=== PATIENT | male | born 1990 | race Two or more races ===

== ENCOUNTER 2018-11-29 17:24 | Emergency (ER) | payer SELFPAY ==
[~2018-11-29] VITALS: Ht 177.8 cm; Wt 70.3 kg
[2018-11-29 19:10] VITALS: BP 133/69
[2018-11-29] MEDS ORDERED: ONDANSETRON PF 4 MG/2 ML VIAL. IV ONE (19:15)
[2018-11-29] MEDS ORDERED: LIDO:MAALOX 1:1 20 ML SINGLE DOSE. PO ONE (19:15)
[2018-11-29] MEDS ORDERED: IV NORMAL SALINE 1000ML BAG 1,000 ML IV ONE (19:15)
[2018-11-29] MEDS ORDERED: FAMOTIDINE 20 MG/2 ML VIAL IVP ONE (19:15)
[2018-11-29 19:35] LABS: BASO % 1 % (0-3); EOS # 1.4 x10^3/uL (0.0-0.7); EOS % 17 % (0-3); HEMATOCRIT 46.3 % (39.0-53.0); HEMOGLOBIN 15.4 g/dL (13.0-17.5); LYMPH % 35 % (24-48); MEAN CORPUSCULAR HEMOGLOBIN 30 pg (25-35); MEAN CORPUSCULAR HGB CONC 33 g/dL (31-37); MEAN CORPUSCULAR VOLUME 91 fL (79-100); MONO # 0.4 x10^3/uL (0.0-1.1); MONO % 5 % (0-9); NEUT # 3.7 x10^3uL (1.8-7.7); NEUT % 43 % (31-73); PLATELET COUNT 203 x10^3/uL (140-400); RED BLOOD COUNT 5.09 x10^6/uL (4.30-5.70); RED CELL DISTRIBUTION WIDTH 12.7 % (11.5-14.5); WHITE BLOOD COUNT 8.6 x10^3/uL (4.0-11.0)
[2018-11-29 19:46] LABS: CREATININE 0.8 mg/dL (0.7-1.3); POTASSIUM 3.8 mmol/L (3.5-5.1)
--- NOTE | 2018-11-29 19:50 | RAD ---
PQRS Compliance Statement: One or more of the following individualized dose reduction techniques were utilized for this examination: 1. Automated exposure control 2. Adjustment of the mA and/or kV according to patient size 3. Use of iterative reconstruction technique CT abdomen/pelvis without contrast 11/29/2018 7:22 PM INDICATION: Bilateral flank pain COMPARISON: None available TECHNIQUE: Multiple axial CT images of the abdomen and pelvis were obtained without intravenous contrast. Coronal and sagittal reformats are provided. FINDINGS: Visualized portions of the lung bases are clear. Heart size is within normal limits. Evaluation of the solid abdominal viscera is limited by lack of intravenous contrast. No suspicious hepatic masses are identified. Spleen, bilateral adrenal glands, and pancreas are normal in appearance. Gallbladder is present without adjacent inflammatory changes. The abdominal aorta is normal in course and caliber. There are no pathologically enlarged lymph nodes in the abdomen and pelvis. There is no abdominal free fluid. There is no free intraperitoneal air. Small and large bowel are normal in caliber. There is no evidence for bowel obstruction. There are no pericolonic inflammatory changes. A normal, nondilated appendix is visualized without adjacent inflammatory changes. Moderate amount of stool is noted throughout the colon. The kidneys are relatively symmetric in appearance. There is no suspicious renal mass within the limitations of a noncontrast examination. There is no hydronephrosis. There are no calculi within the kidneys, ureters or urinary bladder. The urinary bladder is within normal limits given degree of distention. Prostate and seminal vesicles are normal in appearance. No suspicious pelvic masses are identified. There are no suspicious osseous lesions identified. IMPRESSION: 1. Moderate amount of stool noted throughout the colon. 2. No acute abnormality is identified in abdomen and pelvis. No obstructive uropathy. Electronically signed by: Dalila Hicks MD (11/29/2018 7:47 PM) [facility]
[2018-11-29 19:52] LABS: BILIRUBIN,URINE NEGATIVE (NEG); CLARITY,URINE CLEAR; COLOR,URINE YELLOW; NITRITE,URINE NEGATIVE (NEG); PH,URINE 6.5; PROTEIN,URINE NEGATIVE (NEG-TRACE); UROBILINOGEN,URINE 0.2 mg/dL (0.2 mg/dL)
[2018-11-29 19:54] LABS: TOTAL PROTEIN 7.9 g/dL (6.4-8.2)
[2018-11-29 19:55] LABS: MAGNESIUM 2.3 mg/dL (1.8-2.4); TOTAL BILIRUBIN 0.2 mg/dL (0.2-1.0)
[2018-11-29 20:01] LABS: BACTERIA,URINE 0 /HPF (0-FEW); RBC,URINE 0 /HPF (0-2); SQUAMOUS EPITHELIAL CELL,UR OCC /LPF; WBC,URINE 0 /HPF (0-4)
[2018-11-29] MEDS ORDERED: MAGN296S9 PO (21:18)
[2018-11-29] MEDS ORDERED: SENN-121 PO (21:18)
--- NOTE | 2018-11-29 21:19 | PHYS DOC ---
Past Medical History Past Medical History: No Pertinent History Past Surgical History: No Surgical History Alcohol Use: Occasionally Drug Use: None Adult General Chief Complaint Chief Complaint: ABDOMINAL PAIN HPI HPI 28 y/o male presents with report of progressive epigastric abdominal pain x 2-3 days. Reports worse after eating. Reports radiation to bilateral flanks and associated nausea. Denies vomiting or diarrhea. Denies hematuria or dysuria. Denies trauma. Denies fever/chills. Denies rash. Review of Systems Review of Systems Constitutional: Denies fever or chills [] Eyes: Denies change in visual acuity, redness, or eye pain [] HENT: Denies nasal congestion or sore throat [] Respiratory: Denies cough or shortness of breath [] Cardiovascular: Denies chest pain or palpitations GI: Reports epigastric abdominal pain and nausea; denies vomiting or diarrhea [] : Denies dysuria or hematuria [] Musculoskeletal: Denies joint pain; report bilateral flank pain[] Integument: Denies rash or skin lesions [] Neurologic: Denies headache, focal weakness or sensory changes [] Complete systems were reviewed and found to be within normal limits, except as documented in this note. Current Medications Current Medications Current Medications Medications (Trade) Dose Ordered Sig/Chanda Start Time Stop Time Status Last Admin Dose Admin Famotidine (Pepcid Vial) 20 mg 1X ONCE 11/29/18 19:15 11/29/18 19:16 DC 11/29/18 19:32 20 MG Multi-Ingredient Mouthwash/Gargle (Gi Cocktail) 20 ml 1X ONCE 11/29/18 19:15 11/29/18 19:16 DC 11/29/18 19:32 20 ML Ondansetron HCl (Zofran) 4 mg 1X ONCE 11/29/18 19:15 11/29/18 19:16 DC 11/29/18 19:32 4 MG Sodium Chloride 1,000 ml @ 1,000 mls/hr 1X ONCE 11/29/18 19:15 11/29/18 20:14 DC 11/29/18 19:32 1,000 MLS/HR Allergies Allergies Allergies Coded Allergies Type Severity Reaction Last Updated Verified No Known Drug Allergies 11/29/18 No Physical Exam Physical Exam Constitutional: Well developed, well nourished, no acute distress, non-toxic appearance. [] HENT: Normocephalic, atraumatic, oropharynx moist Eyes: Conjunctiva normal, no discharge. [] Neck: Normal range of motion, no tenderness, supple Cardiovascular: Heart rate regular rhythm, no murmur [] Lungs & Thorax: Bilateral breath sounds clear to auscultation [] Abdomen: Soft, mild epigastric tenderness to palpation Skin: Warm, dry, no erythema, no rash. [] Back: No tenderness, bilateral CVA tenderness. [] Extremities: No tenderness, ROM intact, no edema. [] Neurologic: Alert and oriented X 3, no focal deficits noted. [] Psychologic: Affect normal, judgement normal, mood normal. [] Current Patient Data Vital Signs Vital Signs Date Time Temp Pulse Resp B/P (MAP) Pulse Ox O2 Delivery O2 Flow Rate FiO2 11/29/18 19:10 98.2 78 20 133/69 (90) 100 Room Air 98.2 Lab Values Laboratory Tests Test 11/29/18 19:25 11/29/18 19:45 White Blood Count 8.6 x10^3/uL (4.0-11.0) Red Blood Count 5.09 x10^6/uL (4.30-5.70) Hemoglobin 15.4 g/dL (13.0-17.5) Hematocrit 46.3 % (39.0-53.0) Mean Corpuscular Volume 91 fL (79-100) Mean Corpuscular Hemoglobin 30 pg (25-35) Mean Corpuscular Hemoglobin Concent 33 g/dL (31-37) Red Cell Distribution Width 12.7 % (11.5-14.5) Platelet Count 203 x10^3/uL (140-400) Neutrophils (%) (Auto) 43 % (31-73) Lymphocytes (%) (Auto) 35 % (24-48) Monocytes (%) (Auto) 5 % (0-9) Eosinophils (%) (Auto) 17 % (0-3) H Basophils (%) (Auto) 1 % (0-3) Neutrophils # (Auto) 3.7 x10^3uL (1.8-7.7) Lymphocytes # (Auto) 3.0 x10^3/uL (1.0-4.8) Monocytes # (Auto) 0.4 x10^3/uL (0.0-1.1) Eosinophils # (Auto) 1.4 x10^3/uL (0.0-0.7) H Basophils # (Auto) 0.0 x10^3/uL (0.0-0.2) Segmented Neutrophils % 47 % (35-66) Lymphocytes % 35 % (24-48) Monocytes % 7 % (0-10) Eosinophils % 11 % (0-5) H Platelet Estimate Adequate (ADEQUATE) Large Platelets Occ Polychromasia Slight Ovalocytes Occ Sodium Level 141 mmol/L (136-145) Potassium Level 3.8 mmol/L (3.5-5.1) Chloride Level 103 mmol/L (98-107) Carbon Dioxide Level 31 mmol/L (21-32) Anion Gap 7 (6-14) Blood Urea Nitrogen 13 mg/dL (8-26) Creatinine 0.8 mg/dL (0.7-1.3) Estimated GFR (Cockcroft-Gault) 116.0 BUN/Creatinine Ratio 16 (6-20) Glucose Level 99 mg/dL (70-99) Calcium Level 9.0 mg/dL (8.5-10.1) Magnesium Level 2.3 mg/dL (1.8-2.4) Total Bilirubin 0.2 mg/dL (0.2-1.0) Aspartate Amino Transferase (AST) 19 U/L (15-37) Alanine Aminotransferase (ALT) 25 U/L (16-63) Alkaline Phosphatase 86 U/L (46-116) Total Protein 7.9 g/dL (6.4-8.2) Albumin 4.0 g/dL (3.4-5.0) Albumin/Globulin Ratio 1.0 (1.0-1.7) Lipase 166 U/L (73-393) Urine Color Yellow Urine Clarity Clear Urine pH 6.5 Urine Specific [place] 1.010 Urine Protein Negative mg/dL (NEG-TRACE) Urine Glucose (UA) Negative mg/dL (NEG) Urine Ketones (Stick) Negative mg/dL (NEG) Urine Blood Negative (NEG) Urine Nitrite Negative (NEG) Urine Bilirubin Negative (NEG) Urine Urobilinogen Dipstick 0.2 mg/dL (0.2 mg/dL) Urine Leukocyte Esterase Negative (NEG) Urine RBC 0 /HPF (0-2) Urine WBC 0 /HPF (0-4) Urine Squamous Epithelial Cells Occ /LPF Urine Bacteria 0 /HPF (0-FEW) Laboratory Tests 11/29/18 19:25 Laboratory Tests 11/29/18 19:25 EKG EKG [] Radiology/Procedures Radiology/Procedures PROCEDURE: CT ABDOMEN PELVIS WO CONTRAST PQRS Compliance Statement: One or more of the following individualized dose reduction techniques were utilized for this examination: 1. Automated exposure control 2. Adjustment of the mA and/or kV according to patient size 3. Use of iterative reconstruction technique CT abdomen/pelvis without contrast 11/29/2018 7:22 PM INDICATION: Bilateral flank pain COMPARISON: None available TECHNIQUE: Multiple axial CT images of the abdomen and pelvis were obtained without intravenous contrast. Coronal and sagittal reformats are provided. FINDINGS: Visualized portions of the lung bases are clear. Heart size is within normal limits. Evaluation of the solid abdominal viscera is limited by lack of intravenous contrast. No suspicious hepatic masses are identified. Spleen, bilateral adrenal glands, and pancreas are normal in appearance. Gallbladder is present without adjacent inflammatory changes. The abdominal aorta is normal in course and caliber. There are no pathologically enlarged lymph nodes in the abdomen and pelvis. There is no abdominal free fluid. There is no free intraperitoneal air. Small and large bowel are normal in caliber. There is no evidence for bowel obstruction. There are no pericolonic inflammatory changes. A normal, nondilated appendix is visualized without adjacent inflammatory changes. Moderate amount of stool is noted throughout the colon. The kidneys are relatively symmetric in appearance. There is no suspicious renal mass within the limitations of a noncontrast examination. There is no hydronephrosis. There are no calculi within the kidneys, ureters or urinary bladder. The urinary bladder is within normal limits given degree of distention. Prostate and seminal vesicles are normal in appearance. No suspicious pelvic masses are identified. There are no suspicious osseous lesions identified. IMPRESSION: 1. Moderate amount of stool noted throughout the colon. 2. No acute abnormality is identified in abdomen and pelvis. No obstructive uropathy. Electronically signed by: Dalila Hicks MD (11/29/2018 7:47 PM) [facility] Course & Med Decision Making Course & Med Decision Making Pertinent Labs and Imaging studies reviewed. (See chart for details) Patient presents with report of worsening bilateral flank pain with radiation to epigastric region over the last few days. VS stable. Afebrile. Symptomatic treatment provided with interval improvement. Labs obtained and posted to chart. LFTs/lipase WNL. UA without signs of infection. CT abd/ pelvis without surgical abnormality noted. Some moderate colonic stool volume noted concerning for constipation. Patient stable for discharge home with outpatient follow-up with PCP. Discussed findings and plan with patient, who acknowledges understanding and agreement. Umair Disclaimer Dragon Disclaimer This electronic medical record was generated, in whole or in part, using a voice recognition dictation system. Departure Departure Impression: Primary Impression: Abdominal pain Additional Impression: Constipation Disposition: HOME, SELF-CARE Condition: STABLE Referrals: NO PCP (PCP) GUILLE FRANKLIN MD Patient Instructions: Abdominal Pain (Nonspecific), Constipation, Adult, Easy- to-Read Scripts Famotidine (PEPCID) 20 Mg Tablet 20 MG PO BID, #14 TAB Prov: LEIF STEINBERG DO 11/29/18 Magnesium Citrate (MAGNESIUM CITRATE) 296 Ml Solution 296 ML PO ONCE, #296 ML Prov: LEIF STEINBERG DO 11/29/18 Sennosides/Docusate Sodium (Colace 2-in-1 Tablet) 1 Each Tablet 1 EACH PO QHS, #14 TAB Prov: LEIF STEINBERG DO 11/29/18 Problem Qualifiers Primary Impression: Abdominal pain Abdominal location: generalized Qualified Codes: R10.84 - Generalized abdominal pain Additional Impression: Constipation Constipation type: unspecified constipation type Qualified Codes: K59.00 - Constipation, unspecified LEIF STEINBERG DO Nov 29, 2018 21:19
[2018-11-29] MEDS ORDERED: FAMO-63 PO (21:21)
[2018-11-29 21:41] LABS: % EOS 11 % (0-5); % LYMPHS 35 % (24-48); % MONOS 7 % (0-10); % SEGS 47 % (35-66); OVALOCYTES OCC; PLT ESTIMATE ADEQUATE (ADEQUATE); POLYCHROMASIA SLIGHT
== END 2018-11-29 21:34 | disposition home or self-care (01) ==
LOC: EDSEX 17:24 → ER 17:24
DX: K59.00 Constipation, unspecified (principal); R10.84 Generalized abdominal pain
CPT/HCPCS: 36415; 74176; 80053; 81001; 83690; 83735; 85007; 85025; 96374; 96375; 99284; J2405; J3490; J7030